=== PATIENT | female | born 1995 | race Caucasian/White ===

== ENCOUNTER 2024-01-04 11:41 | Inpatient (IN) ==
[2024-01-04] MEDS ORDERED: LIDOCAINE 1% LOCAL 20 ML VIAL INFIL PRN (11:45)
[2024-01-04] MEDS ORDERED: OXYTOCIN 30 UNITS/NSS 30 UNITS/500 ML BAG IV PRN (11:45)
--- NOTE | 2024-01-04 12:06 | History & Physical Report ---
Date of Service January 04, 2024 Assessment & Plan (1) Group beta Strep positive: (2) Chronic hypertension affecting : (3) Encounter for induction of labor: Plan 28 y/o at 38 weeks of gestation here for induction Pitocin for augmentation Howell placement Epidural if requested GBS +, penicillin Monitor tracing, cat 1 Admission and Anticipated Discharge Date Admission Date: January 04, 2024 History of Present Illness Primary Care Provider: NO PCP Holli is a 28 y/o at 38 weeks of gestation. MNAUEL 01/18/24 . Here fo induction. Complications with this include CHTN (no meds), Has been attending OB appointments regularly. Currently taking no medications. GBS posi tive, RH negative (will need rogham post ), Rubella immune Contractions: none. Fluid or Blood loss: none Movement: active FHR baseline 130, moderate variability, accelerations present, decelerations absent OB Labs: Blood Type O Negative 10/29/23 Antibody Screen NEGATIVE 10/29/23 Hemoglobin 11.8 g/dl (12.0-16.0) L 12/20/23 Hematocrit 36.4 % (37.0-47.0) L 12/20/23 Mean Corpuscular Volume 85.2 fL (80.0-100.0) 12/20/23 Platelet Count 295 K/uL (130-400) 12/20/23 Glucose 1 Hour 50 gm Load 113 mg/dl (70-130) 10/29/23 Initial OB Labs (06/22/23) Blood Type & RH 0 Negative Antibody ScreenNegative HCT/HGB39.5/13.5 [id number] Hep C IgG 13yrs+ Oldnon reactive Pap Test 09/2022 WNL Chlamydia not detected Gonorrhea not detected Rubella Immune RPR non reactvie HBsAg non reactive HIV Non Reactvie MCV No genetic testing in . Allergies Allergy/AdvReac Type Severity Reaction Status Date / Time morphine AdvReac Shakiness Verified 01/03/24 11:23 Home Medications Medication Instructions Recorded Confirmed Type aspirin 81 mg tablet,delayed 81 mg PO DAILY 09/06/23 01/04/24 History release (Adult Low Dose Aspirin) vits no.124-ferrous fum 1 tab PO DAILY 12/26/23 01/04/24 History 27 mg iron-folic acid 800 mcg tablet ( Vitamin) Patient History Medical History Migraine Chronic hypertension affecting Surgical History S/P wisdom tooth extraction Family History Mother Afib Father Hypertension Social History Smoking Status: Former smoker Smoking End Date: 12/20/2021; Second Hand Exposure: No; Do You Dip or Chew Tobacco: No; Hx Alcohol Use: No Hx Substance Use: No Preferred Language: Colombian Communication Ability: Effective Ground [employer] Required: No Beliefs That Will Affect Care: None marital status: Single marital status details: Kyle (28) [phone] Current Living Situation: Significant Other Current Living Situation Comment: FOB - Kyle and 2 dogs current occupational status: unemployed Other Information That Helps Us Care for You: No Feels Safe at Home: Yes Safety Concerns: Feels Safe At This Time Assistive Devices: Contacts and Glasses Review of Systems All systems reviewed & are unremarkable except as noted in HPI & below Physical Exam Physical Exam: General: patient resting comfortably, NAD, non-toxic in appearance, AA&O x 4, answers questions appropriately. Heart: +S1/S2, regular, no m/r/g Lungs: equal air entry bilaterally, no rales/rhonchi/wheezes Abd: +BS, soft, NT/ND, gravid uterus Cervical: uterus mod. anterior Ext: warm, no clubbing/cyanosis or edema Results & Data Vital Signs (Past 12 Hours) Vital Signs Temp Pulse Resp BP 01/04/24 11:52 36.6 C 95 H 18 132/83 Code Status & VTE Plan VTE Prophylaxis Plan VTE Prophylaxis will be ordered: No Supervising Physician Co-Signing Physician Notes Resident Physician Supervision Note: I interviewed and examined the patient. Discussed with Dr. Belcher and agree with findings and plan as documented in the note. Any exceptions or clarifications are listed here: This is duplicate h&p. Agree with above. See other H&P for details. Documented By: Mary Richmond MD, FACOG Resident Activity Tracking Resident Involvement: Resident Care Provided Care Provided: OB Delivery
[2024-01-04 12:22] LABS: Hematocrit (blood only) 35.7 % (37.0-47.0); Hemoglobin 11.5 g/dl (12.0-16.0); Mean Corpuscular Hemoglobin 27.1 pg (25.0-34.0); Mean Corpuscular Hgb Conc 32.2 g/dL (32.0-36.0); Mean Corpuscular Volume 84.2 fL (80.0-100.0); Platelet Count 295 K/uL (130-400); RDW Coefficient of Variation 13.3 % (11.5-14.5); RDW Standard Deviation 40.8 fL (36.4-46.3); Red Blood Count 4.24 M/uL (4.20-5.40)
[2024-01-04] MEDS: LACTATED RINGER'S 1,000 ML IV PRN (12:25)
[2024-01-04] MEDS: PENICILLIN GK 6 MU in DEXTROSE 5% 250 ML IV STA (12:52)
[2024-01-04] MEDS: OXYTOCIN 30 UNITS/NSS 30 UNITS/500 ML BAG IV PRN (12:56)
--- NOTE | 2024-01-04 13:43 | History & Physical Report ---
Date of Service January 04, 2024 Assessment & Plan (1) Encounter for induction of labor: (2) Chronic hypertension affecting : (3) Group beta Strep positive: Plan admit, iv labs. burgess balloon placed and pitocin begun. fhts categ 1. pcn started for gbs pos. plan arom in approx 3-4hrs. pt agreeable, denies questions or concerns. Admission and Anticipated Discharge Date Admission Date: January 04, 2024 History of Present Illness Chief Complaint: planned induction for chtn Primary Care Provider: NO PCP 28yo at 38 0/7 wks gabriela presents to L&D for planned induction for chtn. She notes no rom, vb. +FM. Burgess balloon placed this am by Dr. Newell,with exam for 2+/70%. PNC c/b 1. CHTN, nl growth 2. GBS Pos 3. history of recurrent preg loss 4. TIFFANIE at 19wks 5. Rh neg, had rhogam eval pp PNL RH neg, RI, GBS pos OBH: sab x 4 GYNH: nl paps no stds. Allergies Allergy/AdvReac Type Severity Reaction Status Date / Time morphine AdvReac Shakiness Verified 01/03/24 11:23 Home Medications Medication Instructions Recorded Confirmed Type aspirin 81 mg tablet,delayed 81 mg PO DAILY 09/06/23 01/04/24 History release (Adult Low Dose Aspirin) vits no.124-ferrous fum 1 tab PO DAILY 12/26/23 01/04/24 History 27 mg iron-folic acid 800 mcg tablet ( Vitamin) Patient History Medical History Migraine Chronic hypertension affecting Surgical History S/P wisdom tooth extraction Family History Mother Afib Father Hypertension Social History Smoking Status: Former smoker Smoking End Date: 12/20/2021; Second Hand Exposure: No; Do You Dip or Chew Tobacco: No; Hx Alcohol Use: No Hx Substance Use: No Preferred Language: Slovenian Communication Ability: Effective Utility Hand Required: No Beliefs That Will Affect Care: None marital status: Single marital status details: Kyle (28) [phone] Current Living Situation: Significant Other Current Living Situation Comment: ISAIAS Wright and 2 dogs current occupational status: unemployed Other Information That Helps Us Care for You: No Feels Safe at Home: Yes Safety Concerns: Feels Safe At This Time Assistive Devices: Contacts and Glasses Review of Systems as per Subjective / HPI Physical Exam Constitutional: WD/WN, vitals as above Respiratory: normal respiratory effort, lungs clear to auscultation Cardiovascular: Rate/Rhythm: regular rate and regular rhythm Gastrointestinal (Abdomen): soft gravid nt efw 6-7# Musculoskeletal: no edema nontender calves Neurologic: grossly normal Psychiatric: A+Ox3, euthymic affect Genitourinary: Manual OB Exam: + cervical dilation (2-3) and + cervical effacement (per dr. newell) 70% OB Exam Monitor Tracing: + external FHT monitor used, + external uterine monitor used (q4 on pit 2), + category I and + normal FHT variability Results & Data Vital Signs (Past 12 Hours) Vital Signs Temp Pulse Resp BP O2 Del Method 01/04/24 13:02 97.9 F 18 Room Air 01/04/24 11:52 97.9 F 95 H 18 132/83 Code Status & VTE Plan VTE Prophylaxis Plan VTE Prophylaxis will be ordered: No Coding Level of Care Code None Diagnoses Encounter for induction of labor Z34.90 Chronic hypertension affecting O10.919 Group beta Strep positive B95.1
[2024-01-04] MEDS: PENICILLIN GK 3 MU in DEXTROSE 5% 100 ML IV PRN (17:08)
[2024-01-04] MEDS ORDERED: NALOXONE HCL 0.4 MG/1 ML VIAL/CARP IV PRN (17:33)
[2024-01-04] MEDS ORDERED: LIDOCAINE 2% MPF LOCAL 5 ML VIAL EPI PRN (17:33)
[2024-01-04] MEDS ORDERED: diphenhydrAMINE 50 MG/ML VIAL IV PRN (17:33)
[2024-01-04] MEDS ORDERED: BUPIVACAINE 0.25% PF 30 ML VIAL EPI PRN (17:33)
[2024-01-04] MEDS ORDERED: ROPIVACAINE 0.5% PF 5 MG/ML 20 ML VIAL EPI PRN (17:33)
[2024-01-04] MEDS ORDERED: NALOXONE HCL 1 MG in SODIUM CHLORIDE 0.9% 1,000 ML IV PRN (17:33)
[2024-01-04] MEDS ORDERED: fentaNYL citrate PF 100 MCG/2 ML VIAL EPI PRN (17:33)
[2024-01-04] MEDS ORDERED: NALBUPHINE HCL 5 MG in SYRINGE 0 ML IV PRN (17:33)
[2024-01-04] MEDS ORDERED: ePHEDrine sulfate 50 MG/ML AMP IV PRN (17:33)
[2024-01-04] MEDS ORDERED: SODIUM CHLORIDE 0.9% PF INJ 10 ML VIAL EPI PRN (17:33)
--- NOTE | 2024-01-04 17:35 | Anesthesiology Consultation ---
Date of Service January 04, 2024 Assessment & Plan Chart Review Chart Review: Patient NOT seen in Pre Admission Testing and Acceptable Risk for Labor Epidural Consults Requested none ASA ASA2 Proposed Anesthesia Anesthesia Type: Labor Epidural Risk / Benefits Reviewed With: PT / POA / Parent / Guardian, Accepts Plan and Informed Consent Obtained History Height/Weight Height: 5 ft 7 in Weight: 103.873 kg Allergies Allergy/AdvReac Type Severity Reaction Status Date / Time morphine AdvReac Shakiness Verified 01/03/24 11:23 Medications Home Medications Medication Instructions Recorded Confirmed Last Taken aspirin 81 mg tablet,delayed 81 mg PO DAILY 09/06/23 01/04/24 01/03/24 09:00 release (Adult Low Dose Aspirin) vits no.124-ferrous fum 1 tab PO DAILY 12/26/23 01/04/24 01/03/24 09:00 27 mg iron-folic acid 800 mcg tablet ( Vitamin) Active Medications Generic Name Dose Route Start Last Admin Trade Name Freq PRN Reason Stop Dose Admin Oxytocin 30 units in 500 mls @ 10 mls/hr 01/04/24 11:45 01/04/24 15:45 Pitocin 30 Units/Nss IV 01/06/24 11:44 0.6 units/hr .Q24H PRN 10 mls/hr Labor Induction/Augmentation Titration Protocol 0.6 UNITS/HR Lactated Ringer's 1,000 mls @ 125 mls/hr 01/04/24 11:45 01/04/24 17:53 Lr IV 01/06/24 11:44 125 mls/hr .Q8H PRN Administration L&D Protocol Protocol Penicillin G Potassium 3 mu/ 106 mls @ 100 mls/hr 01/04/24 14:45 01/04/24 17:08 Dextrose IV 01/14/24 14:44 100 mls/hr Q4H PRN Administration GBS(+) Until Delivery NPO Date Last Intake of Fluids: 01/04/24 Time Last Intake of Fluids: 17:00 Date Last Intake of Solids: 01/04/24 Time Last Intake of Solids: 11:00 Past Medical History Medical History Migraine Chronic hypertension affecting Exercise / Class Metabolic Activity 1 > 8 Run/Swim/Ski/Tennis Past Family History Family History Mother Afib Father Hypertension Past Surgical History Surgical History S/P wisdom tooth extraction Past Anesthesia History No Hx of Anesthesia Complications and No Family Hx of Anesthesia Complications History of PONV No Hx of PONV and No Hx of Motion Sickness Social History Smoking Status: Former smoker Do You Dip or Chew Tobacco: No Smoking End Date: 12/20/2021 Hx Alcohol Use: No Hx Substance Use: No substance use type: does not use Review of Systems ROS Unobtainable: All systems reviewed & are unremarkable except as noted in HPI & below Physical Exam Vital Signs Last Vital Signs Temp 36.8 C 01/04/24 17:12 Pulse 81 01/04/24 17:08 Resp 20 01/04/24 17:12 BP 135/80 01/04/24 17:08 O2 Del Method Room Air 01/04/24 13:02 ENMT Mouth: no TMJ abnormality Thyromental Distance: > or= 3.5 Finger Breadths Mallampati Class: III Neck normal visual inspection and trachea midline; neck extension not limited Respiratory normal respiratory effort Auscultation: lungs clear to auscultation bilaterally Cardiovascular Rate/Rhythm: regular rate and regular rhythm Heart Sounds: no murmur Musculoskeletal Spine: normal cervical ROM Extremities: full ROM of extremities Neurologic moves all extremities Psychiatric Orientation: alert and oriented x 3 Testing Laboratory Results 01/04/24 12:01 Blood Type O Negative 01/04/24 12:01 Antibody Screen NEGATIVE 01/04/24 12:01
[2024-01-04] MEDS: BUPIVACAINE 0.25% PF 30 ML VIAL ONE (18:01)
[2024-01-04] MEDS: LIDOCAINE 2%/EPINEPHRINE 1:200,000 20 ML PF ONE (18:01)
[2024-01-04] MEDS: fentANYL 2 MCG/ML BUPIVacaine 0.125%-NSS 100ML BAG ONE (18:02)
[2024-01-04] MEDS: SODIUM CHLORIDE 0.9% PF INJ 10 ML VIAL ONE (18:02)
[2024-01-04] MEDS: LIDOCAINE 2%/EPINEPHRINE 1:200,000 20 ML PF EPI STA (18:05)
[2024-01-04] MEDS: BUPIVACAINE 0.25% PF 30 ML VIAL EPI STA (18:05)
[2024-01-04] MEDS: fentaNYL citrate PF 100 MCG/2 ML VIAL EPI STA (18:05)
[2024-01-04] MEDS: fentaNYL citrate PF 100 MCG/2 ML VIAL ONE (18:05)
[2024-01-04] MEDS: SODIUM CHLORIDE 0.9% PF INJ 10 ML VIAL EPI STA (18:06)
--- NOTE | 2024-01-04 23:08 | Labor Progress Brief Note ---
Date of Service January 04, 2024 Subjective comfortable Assessment & Plan (1) Encounter for induction of labor: (2) Group beta Strep positive: (3) Chronic hypertension affecting : Plan good cx change, fhts categ 1. pcn for gbs. cont with pit. Admission and Anticipated Discharge Date Admission Date: January 04, 2024 Physical Exam Constitutional: WD/WN, vitals as above Genitourinary: Manual OB Exam: + cervical dilation (per nurse) 8 cm OB Exam Monitor Tracing: + external FHT monitor used, + external uterine monitor used (pit at 24, q2-3), + category I and + normal FHT variability Results & Data Vital Signs (Past 12 Hours) Vital Signs Temp Pulse Resp BP Pulse Ox O2 Del Method 01/04/24 23:03 111 H 145/65 H 97 01/04/24 22:58 97 01/04/24 22:58 115 H 01/04/24 22:58 116 H 92 01/04/24 22:53 108 H 97 01/04/24 22:48 111 H 97 01/04/24 22:44 137 H 137/81 01/04/24 22:43 142 H 96 01/04/24 22:38 122 H 97 01/04/24 22:33 112 H 97 01/04/24 22:30 18 01/04/24 22:30 18 01/04/24 22:28 98 H 139/76 97 01/04/24 22:23 105 H 99 01/04/24 22:18 105 H 97 01/04/24 22:13 94 H 96 01/04/24 22:12 91 H 132/77 01/04/24 22:08 92 H 97 01/04/24 22:03 90 98 01/04/24 22:00 18 01/04/24 22:00 98.6 F 18 01/04/24 21:58 95 H 98 01/04/24 21:53 91 H 98 01/04/24 21:48 104 H 97 01/04/24 21:43 86 97 01/04/24 21:42 85 138/82 01/04/24 21:38 76 98 01/04/24 21:33 77 97 01/04/24 21:30 18 01/04/24 21:30 18 01/04/24 21:28 88 99 01/04/24 21:23 97 01/04/24 21:23 83 01/04/24 21:23 90 93 01/04/24 21:18 98 H 97 01/04/24 21:16 102 H 93 01/04/24 21:13 97 H 98 01/04/24 21:12 96 H 116/61 01/04/24 21:08 87 97 01/04/24 21:03 103 H 99 01/04/24 21:00 18 01/04/24 21:00 18 01/04/24 20:58 90 124/63 96 01/04/24 20:57 80 91 01/04/24 20:53 86 96 01/04/24 20:48 93 H 99 01/04/24 20:43 88 100 01/04/24 20:42 94 01/04/24 20:42 100 H 01/04/24 20:42 97 H 97/52 L 01/04/24 20:38 95 H 97 01/04/24 20:36 102 H 91 01/04/24 20:33 101 H 99 01/04/24 20:30 18 01/04/24 20:30 18 01/04/24 20:28 82 100 01/04/24 20:27 84 95/50 L 01/04/24 20:23 88 99 01/04/24 20:18 102 H 96 01/04/24 20:13 97 01/04/24 20:13 121 H 01/04/24 20:13 91 H 92 01/04/24 20:12 76 100/56 L 01/04/24 20:08 84 98 01/04/24 20:03 76 97 01/04/24 19:58 84 97 01/04/24 19:57 78 104/55 L 01/04/24 19:53 80 97 01/04/24 19:48 77 98 01/04/24 19:43 76 98 01/04/24 19:42 75 112/56 L 01/04/24 19:38 92 H 99 01/04/24 19:33 85 98 01/04/24 19:30 18 01/04/24 19:30 18 01/04/24 19:28 96 01/04/24 19:28 90 01/04/24 19:28 75 123/78 01/04/24 19:22 84 98 01/04/24 19:21 83 126/67 01/04/24 19:18 116 H 94 01/04/24 19:17 80 98 01/04/24 19:12 77 98 01/04/24 19:07 75 99 01/04/24 19:02 78 98 01/04/24 19:00 18 01/04/24 19:00 98.2 F 18 01/04/24 18:57 81 98 01/04/24 18:52 77 98 01/04/24 18:47 107 H 97 01/04/24 18:42 96 01/04/24 18:42 92 H 01/04/24 18:42 86 126/64 01/04/24 18:38 82 128/67 01/04/24 18:37 82 98 01/04/24 18:32 98 01/04/24 18:32 83 01/04/24 18:32 78 117/66 01/04/24 18:30 18 01/04/24 18:30 18 01/04/24 18:27 98 01/04/24 18:27 83 01/04/24 18:27 91 H 122/82 01/04/24 18:22 87 98 01/04/24 18:21 106 H 128/68 01/04/24 18:18 87 134/65 01/04/24 18:17 86 97 01/04/24 18:16 83 135/62 01/04/24 18:14 88 126/58 L 01/04/24 18:12 97 01/04/24 18:12 99 H 01/04/24 18:12 90 146/66 H 01/04/24 18:10 107 H 140/67 01/04/24 18:08 88 136/63 01/04/24 18:07 96 H 97 01/04/24 18:06 79 137/67 01/04/24 18:04 85 135/74 01/04/24 18:02 96 01/04/24 18:02 84 01/04/24 18:02 75 134/79 01/04/24 18:00 74 125/71 01/04/24 17:58 82 135/70 01/04/24 17:57 83 95 01/04/24 17:56 83 162/80 H 01/04/24 17:54 77 146/83 H 01/04/24 17:52 80 139/89 96 01/04/24 17:51 86 94 01/04/24 17:47 81 97 01/04/24 17:42 81 96 01/04/24 17:30 18 01/04/24 17:30 18 01/04/24 17:12 20 01/04/24 17:12 98.2 F 20 01/04/24 17:08 81 135/80 01/04/24 17:00 18 01/04/24 17:00 18 01/04/24 16:30 18 01/04/24 16:30 18 01/04/24 16:12 77 125/66 01/04/24 16:00 18 01/04/24 16:00 18 01/04/24 15:30 18 01/04/24 15:30 18 01/04/24 15:24 18 01/04/24 15:24 98.2 F 18 01/04/24 15:09 75 140/84 01/04/24 15:00 18 01/04/24 15:00 18 01/04/24 14:30 16 01/04/24 14:30 16 01/04/24 14:00 16 01/04/24 14:00 16 01/04/24 13:59 72 130/90 01/04/24 13:02 97.9 F 18 Room Air 01/04/24 12:30 18 01/04/24 12:30 18 01/04/24 11:52 97.9 F 95 H 18 132/83 Coding Level of Care Code None Diagnoses Encounter for induction of labor Z34.90 Group beta Strep positive B95.1 Chronic hypertension affecting O10.919
[2024-01-04] MEDS: fentANYL 2 MCG/ML BUPIVacaine 0.125%-NSS 100ML BAG EPI PRN (23:32)
--- NOTE | 2024-01-05 01:11 | Delivery Summary ---
Vaginal Delivery Summary Date of Service January 05, 2024 Vaginal Delivery Summary The patient dilated to complete and pushed to deliver a viable male Apgars 8 and 9 via over vaginal laceration with right labial extension. Mouth and nose bulb suctioned at perineum. Loose nuchal x 1 reduced. Shoulders and body delivered with ease. was vigorous and crying at . Cord clamped at 50 seconds of life and to maternal abdomen where the cord was then doubly clamped and cut. Placenta delivered spontaneously and intact, three-vessel cord. Hemostasis achieved with dilute pitocin and uterine massage. Cervix and sulci intact. Laceration repaired with 3-0 vicryl in routine fashion. EBL 300 cc. Mother and baby stable in recovery. [facility] Vaginal Delivery Charge Delivery Type Details:
[2024-01-05] MEDS ORDERED: oxyCODONE/ACETAMINOPHEN 5mg/325mg TAB PO PRN (01:29)
[2024-01-05] MEDS ORDERED: OXYTOCIN 30 UNITS/NSS 30 UNITS/500 ML BAG IV PRN (01:29)
[2024-01-05] MEDS ORDERED: bisacodyL 10 MG SUPP PR PRN (01:29)
[2024-01-05] MEDS ORDERED: ACETAMINOPHEN 325 MG TAB PO PRN (01:29)
[2024-01-05] MEDS ORDERED: HYDROCORTISONE ACETATE 25 MG SUPP PR PRN (01:29)
[2024-01-05] MEDS: ePHEDrine sulfate 50 MG/ML AMP ONE (01:30)
[2024-01-05] MEDS: DIPHTHER/TETAN/PERTUS Vaccine (Tdap, Adol/Adult) 0.5mL IM ONE (02:11)
[2024-01-05] MEDS: IBUPROFEN 600 MG TAB PO PRN (02:31)
[2024-01-05] MEDS: OXYTOCIN 20 UNITS/LR 1,002 ML IV SCH (02:32)
[2024-01-05] MEDS: BENZOCAINE 20% SPRY 85 APPLN/85 GM CAN EXT PRN (03:53)
[2024-01-05] MEDS: DOCUSATE SODIUM 100 MG CAP PO SCH (08:42)
[2024-01-05] MEDS: PRENATAL VITAMIN 1 TAB PO SCH (08:42)
--- NOTE | 2024-01-05 09:49 | Anesthesia Procedure Note ---
Date of Service January 05, 2024 Anesthesia Post Epidural Note Vital Signs Vital Signs: Temp Pulse Resp BP Pulse Ox O2 Del Method 98.1 F 81 18 126/72 98 Room Air 01/05/24 07:30 01/05/24 07:30 01/05/24 07:30 01/05/24 07:30 01/05/24 07:30 01/05/24 07:30 Pain Intensity Abdomen: Pain Intensity: 3 Notes Mental Status: alert / awake / arousable and participated in evaluation Nausea / Vomiting: adequately controlled Pain: adequately controlled Airway Patency, RR, SpO2: stable & adequate BP & HR: stable & adequate Hydration State: stable & adequate Neuraxial Anesthesia: was administered and sensory block is resolving Anesthetic Complications: no major complications apparent and Pt Satisfied with anesthetic care Epidural: Removed without complications and With tip intact
--- NOTE | 2024-01-06 07:23 | Obstetrical Progress Note ---
Date of Service January 06, 2024 Assessment & Plan (1) Encounter for care and examination after delivery: satisfactory progress discharge to home follow up in 6 weeks Subjective Ambulation: ambulating normally Voiding: no voiding problems Passing Gas:: No Diet Tolerance:: regular diet Lochia:: Small Feeding Type:: breast feeding Review of Systems All systems reviewed & are unremarkable except as noted in HPI & below Physical Exam Constitutional WD/WN, vitals as above Psychiatric A+Ox3, euthymic affect Genitourinary OB Exam Abdomen: + fundal height Fundus: + firm and + relation to umbilicus (1 below) Results & Data Vital Signs (Past 12 Hours) Vital Signs Temp Pulse Resp BP Pulse Ox O2 Del Method 01/06/24 02:00 97.7 F 86 18 123/78 96 Room Air 01/05/24 20:05 97.7 F 89 18 126/77 96 Room Air
== END 2024-01-06 12:40 | disposition home or self-care (01) | DRG 807 ==
LOC: 4S1 11:41 → 4E2 01-05 03:36
DX: O10.92 Unspecified pre-existing hypertension complicating childbirth; Z37.0 Single live birth; O99.824 Streptococcus B carrier state complicating childbirth; O69.81X0 Labor and delivery complicated by cord around neck, without compression, not applicable or unspecified; Z79.82 Long term (current) use of aspirin; Z87.891 Personal history of nicotine dependence; O70.0 First degree perineal laceration during delivery; Z3A.38 38 weeks gestation of pregnancy